=== PATIENT | male | born 1980 | race Caucasian/White ===

== ENCOUNTER → 2021-09-12 | Outpatient (CLI) | payer BC | LOC: KOH-I 10:25 | DX: R07.9 Chest pain, unspecified (principal) | CPT/HCPCS: 71046 ==

== ENCOUNTER 2022-02-19 11:37 | Emergency (ER) | payer SELFPAY | END 2022-02-19 13:10 | disposition other institution (70) | LOC: ER1 11:37 | DX: S68.112A Complete traumatic metacarpophalangeal amputation of right middle finger, initial encounter (principal); F17.210 Nicotine dependence, cigarettes, uncomplicated; X58.XXXA Exposure to other specified factors, initial encounter; Y99.0 Civilian activity done for income or pay | CPT/HCPCS: 73130; 90471; 90715; 96374; 96375; 99284; J0690; J1170; J2405 ==